=== PATIENT | male | born 1950 | race Two or more races ===

== ENCOUNTER 2024-06-21 18:34 | Inpatient (IN) | payer MEDICARE, OTHER ==
[~2024-06-21] VITALS: Ht 175.3 cm; Wt 88.5 kg
[2024-06-21 19:04] LABS: BASOPHILS % (AUTO) 0.2 % (0.0-2.0); EOSINOPHILS % (AUTO) 0.4 % (0.0-6.0); HEMATOCRIT 33 % (39-51); HEMOGLOBIN 11.2 g/dL (13.5-17.5); LYMPHOCYTES # (AUTO) 1.4 K/uL (0.8-4.8); LYMPHOCYTES % (AUTO) 13.3 % (20.0-44.0); MEAN CORPUSCULAR HEMOGLOBIN 30 PG (26.0-33.0); MEAN CORPUSCULAR HGB CONC 34 g/dl (31.0-36.0); MEAN CORPUSCULAR VOLUME 89 fL (80-96); MONOCYTES # (AUTO) 1.2 K/uL (0.1-1.30); MONOCYTES % (AUTO) 10.8 % (2.0-12.0); NEUTROPHILS % (AUTO) 75.3 % (43.0-81.0); PLATELET COUNT (AUTO) 178 K/uL (150-450); RED BLOOD CELL COUNT(AUTO) 3.74 MIL/uL (4.5-6.0); RED CELL DISTRIBUTION WIDTH 15.1 % (11.5-15.0); WHITE BLOOD COUNT (AUTO) 10.6 K/uL (4.3-11.0)
[2024-06-21 19:23] LABS: CALCIUM, SERUM 9.6 mg/dL (8.5-10.1); POTASSIUM 5.2 mmol/L (3.5-5.1)
[2024-06-21 19:28] LABS: PHOSPHORUS 3.3 mg/dL (2.5-4.9)
[2024-06-21 19:29] LABS: BILIRUBIN,DIRECT 0.1 mg/dL (0.0-0.2); BILIRUBIN,TOTAL 0.4 mg/dL (0.2-1.0); TOTAL PROTEIN, SERUM 8.2 g/dL (6.4-8.2)
[2024-06-21 19:31] LABS: INR 1.08 (0.91-1.10); LACTIC ACID 1.4 mmol/L (0.4-2.0); PARTIAL THROMBOPLASTIN TIME 37.9 SEC (24.3-34.3); PROTHROMBIN TIME 11.4 SECS (9.2-11.1)
[2024-06-21 19:36] LABS: THYROID STIMULATING HORMONE 0.71 uIU/mL (0.358-3.74)
[2024-06-21] MEDS ORDERED: METOPROLOL TARTRATE INJ 5 MG/5 ML AMPUL ONE ×3 (20:26→20:55)
[2024-06-21] MEDS: METOPROLOL TARTRATE INJ 5 MG/5 ML AMPUL IVP PRN (20:34)
[2024-06-21] MEDS: IV NS 0.9% 1,000 ML BAG IV ONE (20:34)
[2024-06-21] MEDS ORDERED: PIPERACI/TAZO 3.375GM/D5W 50ML PB IV ONE (20:37)
[2024-06-21] MEDS: PIPERACILLIN /TAZOBACTAM 3.375 G in IV D5W 50 ML IV ONE (20:43)
[2024-06-21] MEDS ORDERED: VANCOMYCIN 1 GM /D5W 250 ML PB IV ONE (21:10)
[2024-06-21] MEDS: VANCOMYCIN 1 GM in IV D5W 250 ML IV ONE (21:35)
[2024-06-21] MEDS ORDERED: ASPIRIN 81 MG TAB.CHEW ONE (22:22)
[2024-06-21] MEDS: ASPIRIN 81 MG TAB.CHEW PO ONE (22:28)
[2024-06-21 23:05] VITALS: BP 99/78; TEMP 97.5; O2SAT 91
[2024-06-21] MEDS ORDERED: CLOT15CR35 TP (23:22)
[2024-06-21] MEDS ORDERED: DIVA-78 PO (23:22)
[2024-06-21] MEDS ORDERED: RIVA15TA PO (23:22)
[2024-06-21] MEDS ORDERED: SITA50TA PO (23:22)
[2024-06-21] MEDS ORDERED: QUET300T2 PO (23:22)
[2024-06-21] MEDS ORDERED: ACET325T53 PO (23:22)
[2024-06-21] MEDS ORDERED: ROSU20TA2 PO (23:22)
[2024-06-21] MEDS ORDERED: MELA3CAP2 PO (23:22)
[2024-06-21] MEDS ORDERED: SODI10PO PO (23:22)
[2024-06-21] MEDS ORDERED: LIDO1ADH82 TP (23:22)
[2024-06-21] MEDS ORDERED: POLY250017 PO (23:22)
[2024-06-21] MEDS ORDERED: METO25TA4 PO (23:22)
[2024-06-21] MEDS ORDERED: CAPS60CR6 TP (23:22)
[2024-06-21] MEDS ORDERED: [UNRECOGNIZED DRUG - CODE] PO (23:22)
[2024-06-21] MEDS ORDERED: SENN-291 PO (23:22)
[2024-06-21] MEDS ORDERED: LEVO150T8 PO (23:22)
[2024-06-21] MEDS ORDERED: SUVO20TA PO (23:22)
[2024-06-21] MEDS ORDERED: AMOX-427 PO (23:22)
[2024-06-22] VITALS: BP 111/75; TEMP 97.9; O2SAT 95
[2024-06-22] MEDS: DIVALPROEX SODIUM 500 MG TABLET.DR PO SCH (00:28)
[2024-06-22] MEDS ORDERED: DEXTROSE 50%-WATER 50 ML DISP.SYRIN IV PRN (00:30)
[2024-06-22] MEDS ORDERED: CEFEPIME 1 GM in IV NS 0.9% 100 ML IV ONE (00:30)
[2024-06-22] MEDS ORDERED: ACETAMINOPHEN 325 MG TABLET PO PRN (00:30)
[2024-06-22] MEDS ORDERED: ONDANSETRON HCL/PF 4 MG/2 ML VIAL IVP PRN (00:30)
[2024-06-22] MEDS ORDERED: CEFEPIME 1 GM VIAL ONE (00:48)
[2024-06-22] MEDS: IV NS 0.9% 1,000 ML IV PRN (00:48)
[2024-06-22] MEDS: CEFEPIME 1 GM in IV NS 0.9% 100 ML IV ONE (00:58)
[2024-06-22 04:00] VITALS: BP 112/79; TEMP 97.7; O2SAT 96
[2024-06-22] MEDS: BLOOD SUGAR DIAGNOSTIC 1 EACH STRIP IN SCH (05:46)
[2024-06-22 07:30] VITALS: BP 114/89; TEMP 97.7; O2SAT 98
[2024-06-22] MEDS: LEVOTHYROXINE SODIUM 75 MCG TABLET PO SCH (07:58)
[2024-06-22 08:00] VITALS: BP 114/89; TEMP 97.7; O2SAT 98
[2024-06-22] MEDS: SENNOSIDES/DOCUSATE SODIUM 1 TAB TABLET PO SCH (09:03)
[2024-06-22] MEDS: METOPROLOL SUCCINATE 25 MG TAB.SR.24H PO SCH (09:04)
[2024-06-22] MEDS: RIVAROXABAN 15 MG TABLET PO SCH (09:06)
[2024-06-22] MEDS ORDERED: MULT-213 PO (09:10)
[2024-06-22] MEDS: SODIUM ZIRCONIUM CYCLOSILICATE 10 GM POWD.PACK PO SCH (11:38)
[2024-06-22] MEDS: INSULIN REGULAR, HUMAN 100 UNIT/ML 3 ML VIAL SQ PRN (11:41)
[2024-06-22] MEDS: CEFEPIME 2 GM in IV D5W 100 ML IV SCH (12:14)
[2024-06-22 13:10] LABS: BASOPHILS % (AUTO) 0.5 % (0.0-2.0); EOSINOPHILS # (AUTO) 0.1 K/uL (0.0-0.7); EOSINOPHILS % (AUTO) 1.4 % (0.0-6.0); HEMATOCRIT 30 % (39-51); HEMOGLOBIN 10.1 g/dL (13.5-17.5); LYMPHOCYTES # (AUTO) 1.5 K/uL (0.8-4.8); LYMPHOCYTES % (AUTO) 24.9 % (20.0-44.0); MEAN CORPUSCULAR HEMOGLOBIN 30 PG (26.0-33.0); MEAN CORPUSCULAR HGB CONC 33 g/dl (31.0-36.0); MEAN CORPUSCULAR VOLUME 89 fL (80-96); MONOCYTES # (AUTO) 0.6 K/uL (0.1-1.30); MONOCYTES % (AUTO) 10.5 % (2.0-12.0); NEUTROPHILS # (AUTO) 3.9 K/uL (1.8-8.9); NEUTROPHILS % (AUTO) 62.7 % (43.0-81.0); PLATELET COUNT (AUTO) 136 K/uL (150-450); RED BLOOD CELL COUNT(AUTO) 3.37 MIL/uL (4.5-6.0); RED CELL DISTRIBUTION WIDTH 15.3 % (11.5-15.0); WHITE BLOOD COUNT (AUTO) 6.1 K/uL (4.3-11.0)
[2024-06-22 13:19] LABS: ALBUMIN 2.6 g/dL (3.4-5.0); BILIRUBIN,TOTAL 0.3 mg/dL (0.2-1.0); CREATININE 2.1 mg/dL (0.6-1.3); PHOSPHORUS 3.3 mg/dL (2.5-4.9); POTASSIUM 4.6 mmol/L (3.5-5.1); TOTAL PROTEIN, SERUM 7.3 g/dL (6.4-8.2)
[2024-06-22 16:00] VITALS: BP 122/81; TEMP 97.3; TEMP 97.5; O2SAT 95
[2024-06-22 20:00] VITALS: BP 123/77; TEMP 97.5; O2SAT 97
[2024-06-22] MEDS: QUETIAPINE FUMARATE 100 MG TABLET PO SCH (21:32)
[2024-06-22] MEDS: ATORVASTATIN 10 MG TABLET PO SCH (21:32)
[2024-06-23 04:00] VITALS: BP 115/86; TEMP 98.1; O2SAT 98
[2024-06-23 06:39] LABS: BASOPHILS % (AUTO) 0.4 % (0.0-2.0); EOSINOPHILS # (AUTO) 0.1 K/uL (0.0-0.7); HEMATOCRIT 26 % (39-51); HEMOGLOBIN 8.6 g/dL (13.5-17.5); LYMPHOCYTES # (AUTO) 1.7 K/uL (0.8-4.8); LYMPHOCYTES % (AUTO) 27.6 % (20.0-44.0); MEAN CORPUSCULAR HEMOGLOBIN 30 PG (26.0-33.0); MEAN CORPUSCULAR HGB CONC 33 g/dl (31.0-36.0); MEAN CORPUSCULAR VOLUME 89 fL (80-96); MONOCYTES # (AUTO) 0.6 K/uL (0.1-1.30); MONOCYTES % (AUTO) 10.2 % (2.0-12.0); NEUTROPHILS # (AUTO) 3.6 K/uL (1.8-8.9); NEUTROPHILS % (AUTO) 59.8 % (43.0-81.0); PLATELET COUNT (AUTO) 130 K/uL (150-450)
[2024-06-23 06:48] LABS: CREATINE KINASE, TOTAL 57 U/L (39-308)
[2024-06-23 06:52] LABS: ALBUMIN 2.3 g/dL (3.4-5.0); BILIRUBIN,TOTAL 0.2 mg/dL (0.2-1.0); CALCIUM, SERUM 8.5 mg/dL (8.5-10.1); CREATININE 2.1 mg/dL (0.6-1.3); MAGNESIUM 1.8 mg/dL (1.8-2.4); PHOSPHORUS 3.5 mg/dL (2.5-4.9); TOTAL PROTEIN, SERUM 6.4 g/dL (6.4-8.2)
[2024-06-23 08:00] VITALS: BP 128/114; TEMP 98.1; O2SAT 98
[2024-06-23 08:52] LABS: IRON, SERUM 33 ug/dl (50-175); TOTAL IRON BINDING CAPACITY 165 ug/dl (250-450)
[2024-06-23] MEDS ORDERED: METO25TA4 PO (08:54)
[2024-06-23 09:05] VITALS: BP 128/96
[2024-06-23] MEDS: METOPROLOL SUCCINATE 25 MG TAB.SR.24H PO SCH (09:05)
[2024-06-23 09:06] LABS: FERRITIN 184 ng/mL (8-388)
[2024-06-25 09:07] LABS: PTH, INTACT 32 pg/mL (15-65)
== END 2024-06-23 15:54 | disposition home health service (06) | DRG 280 ==
LOC: ER 18:56 → TELE 22:43
PROVIDERS: ADMIT Nurse Practitioner Acute Care; ATTEND Internal Medicine
DX: I48.91 Unspecified atrial fibrillation (principal); G93.41 Metabolic encephalopathy; I21.A1 Myocardial infarction type 2; N17.0 Acute kidney failure with tubular necrosis; I13.0 Hypertensive heart and chronic kidney disease with heart failure and stage 1 through stage 4 chronic kidney disease, or unspecified chronic kidney disease; N17.9 Acute kidney failure, unspecified; E44.1 Mild protein-calorie malnutrition; N18.30 Chronic kidney disease, stage 3 unspecified; E78.5 Hyperlipidemia, unspecified; E11.22 Type 2 diabetes mellitus with diabetic chronic kidney disease; Z79.4 Long term (current) use of insulin; I50.9 Heart failure, unspecified; E03.9 Hypothyroidism, unspecified; F41.9 Anxiety disorder, unspecified; Z79.01 Long term (current) use of anticoagulants; K59.00 Constipation, unspecified; F31.9 Bipolar disorder, unspecified; E88.09 Other disorders of plasma-protein metabolism, not elsewhere classified; G93.89 Other specified disorders of brain; M89.8X9 Other specified disorders of bone, unspecified site; E87.5 Hyperkalemia; G25.0 Essential tremor; D64.9 Anemia, unspecified; Z79.84 Long term (current) use of oral hypoglycemic drugs; Z79.899 Other long term (current) drug therapy
CPT/HCPCS: 36415; 70450-TC; 71045-TC; 76770-TC; 80048-TC; 80053-TC; 80061-TC; 80076-TC; 82550-TC; 82728-TC; 82962-TC; 83540-TC; 83605-TC; 83735-TC; 83970; 84100-TC; 84155; 84165; 84443-TC; 84484-TC; 85025-TC; 85730-TC; 87040-TC; 87081-TC; 93307-TC; 97110-TC; 97112-TC; 97530-TC; A4223; A4349; G0378; J0692; J1815; J2543; J3370; J3490; J7030; J7060